=== PATIENT | male | born 1985 | race Caucasian/White ===

== ENCOUNTER 2021-12-23 12:17 | Emergency (ER) | payer SELFPAY ==
[~2021-12-23] VITALS: Ht 165.1 cm; Wt 81.0 kg
[2021-12-23] MEDS ORDERED: METOCLOPRAMIDE HCL 10MG TABLET PO ONE (13:15)
[2021-12-23] MEDS ORDERED: IBUPROFEN 400MG TABLET PO ONE (13:15)
[2021-12-23] MEDS ORDERED: IBUP-2028 PO (13:17)
[2021-12-23] MEDS ORDERED: METO-293 PO (13:17)
[2021-12-23] MEDS ORDERED: B50 PO (13:17)
[2021-12-23 13:34] VITALS: BP 128/80
== END 2021-12-23 13:35 | disposition home or self-care (01) ==
LOC: ER 12:43
DX: R51.9 Headache, unspecified (principal)
CPT/HCPCS: 99283; J8597